=== PATIENT | female | born 1950 | race Caucasian/White ===

== ENCOUNTER 2022-05-31 14:09 | Emergency (ER) | payer OTHER, SELFPAY ==
[2022-05-31 14:26] VITALS: BP 158/69; BP 166/70; PULSE 100; PULSE 107; RESP 18; TEMP 35.8; O2SAT 96; BMI 29.2
--- NOTE | 2022-05-31 15:08 | ED_ITS ---
HPI - Abdominal Pain General Chief Complaint: Abdominal Pain Stated Complaint: abdominal pain Time Seen by Provider: 05/31/22 14:34 Source: patient and EMS Limitations: no limitations History of Present Illness HPI narrative: 72-year-old female with no significant past medical history presenting to the ED complaining of abdominal cramping, nausea, and nonbloody diarrhea s/p eating piece of sausage around 10:00. Reports symptoms started about 30 minutes after eating sausage. Denies fever, chills, vomiting, sick contacts, recent travel, dysuria/hematuria, CP/SOB MD elicited complaint: abdominal pain Related Data Allergies Allergy/AdvReac Type Severity Reaction Status Date / Time No Known Allergies Allergy Verified 05/31/22 14:44 Review of Systems Review of Systems Constitutional: No Fever, No Chills, No Fatigue, No Malaise ENT/Mouth: No Ear Pain, No Nasal Congestion, No sore throat, No Rhinorrhea, No Swallowing Difficulty Eyes: No Eye Pain, No Swelling, No Redness, No Vision Changes Cardiovascular: No Chest Pain, No SOB, No Edema, No Palpitations Respiratory: No Cough, No Sputum, No Dyspnea Gastrointestinal: + Nausea, No Vomiting, + Diarrhea, No Constipation, + Abdominal pain, No Hematochezia, No Melena Genitourinary: No irregular bleeding, No Dysuria, No Urinary Frequency, No Hematuria, No Flank Pain Musculoskeletal: No joint pain, No Myalgias, No Joint Swelling Skin: No Skin Lesions, No rash Neuro: No Weakness, No Numbness, No Dizziness, No Headache Yes all other systems are reviewed and are negative Constitutional: Reports as per [facility] Past Medical History Attestation statement: The following information was validated with the patient. Social History Social History Alcohol intake: never Smoked in Last 30 Days: Yes Use of substances other than those prescribed or required for medical reasons: No Advance Directives: Yes Advance Directives on File: No Physical Exam ED Vital Signs: Vital Signs - 24 hr 05/31/22 14:26 05/31/22 17:46 Temperature 96.5 F L Pulse Rate 107 H 97 Respiratory Rate 18 16 Blood Pressure 166/70 H 127/64 Pulse Oximetry 96 95 Oxygen Delivery Method Room Air Room Air BMI result Body Mass Index 29.2 Const General: cooperative, healthy appearing, comfortable and no acute distress Orientation/consciousness: patient oriented x3 Limitations: no limitations HENMT Head: Yes normal to inspection and Yes atraumatic Ears: hearing grossly normal bilaterally General nose exam: Normal external nose present Face and sinus: Yes normal facial exam Eyes General: appearance normal, both eyes and all related structures EOM: EOMs intact bilaterally Neck Neck: Yes normal visual inspection and Yes no meningeal signs Resp Effort & Inspection: normal respiratory effort and no respiratory distress Auscultation: clear to auscultation bilaterally Cardio Rate: regular rate Heart sounds: S1 normal heart sound present and S2 normal heart sound present GI Inspection: Yes normal to inspection Palpation (GI): Soft to palpation, nontender, no guarding and not rigid Skin Rashes: no rashes Wounds: no wounds Neuro General: patient oriented x3, tone normal and no meningeal signs Gait exam (Neuro): Normal gait present Extrem General: Yes normal to inspection Course Course Course Narrative: -1700--leukocytosis of 17.2. Likely reactive from dry heaving. Still low suspicion for severe sepsis. > will obtain lactic and blood cultures -labs otherwise reassuring. > patient reports symptomatic improvement, requesting to be discharged. Will p.o. challenge. >> patient tolerating p.o. without nausea, vomiting, or abdominal pain -1752--lactic acid 1.6. Patient is safe for discharge home at this time Results discussed with patient including worrisome signs and symptoms and strict return precautions, and when to return to the emergency department. They verbalized understanding and feel safe for discharge at this time. Medical Decision Making Medical Decision Making [facility] Narrative: 72-year-old female with no significant past medical history presenting to the ED complaining of abdominal cramping, nausea, and nonbloody diarrhea s/p eating piece of sausage around 10:00AM. On exam mildly tachycardic, NAD, nontoxic appearing, comfortable, reports symptomatic improvement, abdomen soft/nontender. Concern for food poisoning vs gastroenteritis. Symptoms atypical for ACS. Rule out infectious/metabolic etiologies. Plan: EKG, labs, UA, IVF, sx tx, PO challenge, reasses Low suspicion for severe sepsis Please refer to course for remaining clinical decision making, interpretation of labs/imaging results, and discussions with consultants and/or family members. Differential Diagnosis Differential Diagnoses: The differential diagnosis associated with the presentation includes as above Lab Data MDM Lab Attestation statement: I reviewed the patient's lab results. 05/31/22 15:23 05/31/22 15:23 Labs: Lab Results 05/31/22 05/31/22 05/31/22 Range/Units 15:23 15:23 15:23 WBC 17.2 H (4.8-10.8) X10*3/uL RBC 5.27 (4.20-5.50) X10*6/uL Hgb 15.2 (12.0-16.0) g/dl Hct 45.4 (37.0-47.0) % MCV 86.1 (80.0-98.0) fL MCH 28.8 (27.0-33.0) pg MCHC 33.5 (31.0-35.0) g/dl RDW 13.6 (11.0-16.0) % Plt Count 177 (160-400) X10*3/uL MPV 10.7 (9.4-12.3) fL Immature Gran % (Auto) 0.5 H (0.0-0.4) % Neut % (Auto) 86.2 H (45-73) % Lymph % (Auto) 8.0 L (20-40) % [place] % (Auto) 4.7 (2-11) % Eos % (Auto) 0.3 (0-4) % Baso % (Auto) 0.3 (0-2) % Lymph # (Auto) 1.4 (1.2-4.9) X10*3/uL [place] # (Auto) 0.8 (0.1-1.2) X10*3/uL Eos # (Auto) 0.1 (0.0-0.4) X10*3/uL Baso # (Auto) 0.1 (0.0-0.2) X10*3/uL Abs Immat Gran (auto) 0.08 H (0.00-0.03) X10*3/uL Absolute Neuts (auto) 14.8 H (2.0-8.3) x10*3/uL Absolute Nucleated RBC 0.000 (0.0-0.012) X10*3/uL Nucleated RBC % (auto) 0.0 (0.0-0.2) /100WBC Sodium 138 (135-145) mmol/L Potassium 4.7 (3.3-5.1) mmol/L Chloride 104 (96-108) mmol/L Carbon Dioxide 29 (22-29) mmol/L Anion Gap 10 L (12-20) BUN 12 (9-16) mg/dL Creatinine 0.80 (0.5-1.4) mg/dL Estim Creat Clear Calc 62.9 Estimated GFR > 60 Random Glucose 168 H (60-115) mg/dL Lactic Acid (0.5-2.0) mmol/L Calcium 9.2 (8.4-10.2) mg/dL Magnesium 1.7 (1.6-2.6) mg/dL Total Bilirubin 0.4 (0.0-1.0) mg/dL Direct Bilirubin < 0.2 (0.0-0.5) mg/dL AST 17 (5-31) U/L ALT 17 (0-31) U/L Alkaline Phosphatase 63 (39-117) U/L Troponin I High Sens < 3.5 (<3.5-17.0) ng/L Total Protein 6.7 (6.5-8.0) g/dL Albumin 4.1 (3.5-5.0) g/dL Lipase 19 (8-78) U/L 05/31/22 Range/Units 17:34 WBC (4.8-10.8) X10*3/uL RBC (4.20-5.50) X10*6/uL Hgb (12.0-16.0) g/dl Hct (37.0-47.0) % MCV (80.0-98.0) fL MCH (27.0-33.0) pg MCHC (31.0-35.0) g/dl RDW (11.0-16.0) % Plt Count (160-400) X10*3/uL MPV (9.4-12.3) fL Immature Gran % (Auto) (0.0-0.4) % Neut % (Auto) (45-73) % Lymph % (Auto) (20-40) % [place] % (Auto) (2-11) % Eos % (Auto) (0-4) % Baso % (Auto) (0-2) % Lymph # (Auto) (1.2-4.9) X10*3/uL [place] # (Auto) (0.1-1.2) X10*3/uL Eos # (Auto) (0.0-0.4) X10*3/uL Baso # (Auto) (0.0-0.2) X10*3/uL Abs Immat Gran (auto) (0.00-0.03) X10*3/uL Absolute Neuts (auto) (2.0-8.3) x10*3/uL Absolute Nucleated RBC (0.0-0.012) X10*3/uL Nucleated RBC % (auto) (0.0-0.2) /100WBC Sodium (135-145) mmol/L Potassium (3.3-5.1) mmol/L Chloride (96-108) mmol/L Carbon Dioxide (22-29) mmol/L Anion Gap (12-20) BUN (9-16) mg/dL Creatinine (0.5-1.4) mg/dL Estim Creat Clear Calc Estimated GFR Random Glucose (60-115) mg/dL Lactic Acid 1.6 (0.5-2.0) mmol/L Calcium (8.4-10.2) mg/dL Magnesium (1.6-2.6) mg/dL Total Bilirubin (0.0-1.0) mg/dL Direct Bilirubin (0.0-0.5) mg/dL AST (5-31) U/L ALT (0-31) U/L Alkaline Phosphatase (39-117) U/L Troponin I High Sens (<3.5-17.0) ng/L Total Protein (6.5-8.0) g/dL Albumin (3.5-5.0) g/dL Lipase (8-78) U/L Radiology Impression Discussion of test interpretation with radiology: I have reviewed the radiologist's reading. Prescription Management I considered prescription management with: Pain Medication Medications Administered Discontinued Medications Generic Name Dose Route Start Last Admin Trade Name Freq PRN Reason Stop Dose Admin Al Hydroxide/Mg Hydroxide 30 ml 05/31/22 14:44 05/31/22 15:24 Magnesium Hydrox/Alum Hydrox 30 Ml Oral.Susp PO 05/31/22 14:45 30 ml ONCE ONE Administration Famotidine 20 mg 05/31/22 14:44 05/31/22 15:24 Famotidine 20 Mg Tablet PO 05/31/22 14:45 20 mg ONCE ONE Administration Sodium Chloride 1,000 mls @ 999 mls/hr 05/31/22 15:15 05/31/22 16:51 Ns IV 05/31/22 16:15 Infused .Q1H1M LUIS DANIEL Infusion Lidocaine HCl 15 ml 05/31/22 14:44 05/31/22 15:24 Lidocaine Hcl Viscous 2 % 15 Ml Solution MUCOUS MEM 05/31/22 14:45 15 ml ONCE ONE Administration Ondansetron HCl 4 mg 05/31/22 14:44 05/31/22 15:24 Ondansetron Odt 4 Mg Tab.Rapdis TRANSLINGU 05/31/22 14:45 4 mg ONCE ONE Administration Discharge Plan Discharge Clinical Impression: Food poisoning Patient Disposition: Home, Self-Care Instructions: Acute Diarrhea (ED) Additional Instructions: Your blood work showed a elevated white blood cell count, this could be reactive from your dry heaving. you likely got food poisoning/viral gastroenteritis The stay hydrated at home. Practice a bland diet for the next few days Follow-up with her doctor If symptoms persist or worsen you have fever, persistent abdominal pain/naus ea/vomiting or diarrhea return to the emergency department Referrals: Physician,Jessika J [Primary Care Provider] -
--- NOTE | 2022-05-31 15:18 | ECG_ITS ---
Test Reason : ABDOMINAL PAIN Blood Pressure : / mmHG Vent. Rate : 099 BPM Atrial Rate : 099 BPM P-R Int : 198 ms QRS Dur : 068 ms QT Int : 324 ms P-R-T Axes : 056 042 066 degrees QTc Int : 415 ms Poor data quality Normal sinus rhythm Nonspecific T wave abnormality Abnormal ECG No previous ECGs available Please repeat EKG with better baseline Referred By: Melody Aparicio Electronically Signed By:DENZEL SHEPHERD MD
[2022-05-31] MEDS: Magnesium Hydrox/Alum Hydrox 30 ML ORAL.SUSP PO (15:24)
[2022-05-31] MEDS: Famotidine 20 MG TABLET PO (15:24)
[2022-05-31] MEDS: 0.9 % Sodium Chloride 1,000 ML 999 ML IV (15:24)
[2022-05-31] MEDS: Lidocaine HCl Viscous 2 % 15 ML SOLUTION MUCOUS MEM (15:24)
[2022-05-31] MEDS: Ondansetron ODT 4 MG TAB.RAPDIS TRANSLINGU (15:24)
[2022-05-31 15:28] LABS: MANUAL DIFF FLAG NO
[2022-05-31 15:31] LABS: Basophils Absolute Auto 0.1 X10*3/uL (0.0-0.2); Basophils Percent Auto 0.3 % (0-2); Eosinophils Absolute Auto 0.1 X10*3/uL (0.0-0.4); Eosinophils Percent Auto 0.3 % (0-4); Hematocrit 45.4 % (37.0-47.0); Hemoglobin 15.2 g/dl (12.0-16.0); Imm Gran Abs Auto 0.08 X10*3/uL (0.00-0.03); Imm Gran Pct Auto 0.5 % (0.0-0.4); Lymphocytes Absolute Auto 1.4 X10*3/uL (1.2-4.9); Mean Corpuscular HGB Conc 33.5 g/dl (31.0-35.0); Mean Corpuscular Hemoglobin 28.8 pg (27.0-33.0); Mean Corpuscular Volume 86.1 fL (80.0-98.0); Mean Platelet Volume 10.7 fL (9.4-12.3); Monocytes Absolute Auto 0.8 X10*3/uL (0.1-1.2); Monocytes Percent Auto 4.7 % (2-11); Neutrophils Absolute Auto 14.8 x10*3/uL (2.0-8.3); Neutrophils Percent Auto 86.2 % (45-73); Platelet Count 177 X10*3/uL (160-400); Red Blood Count 5.27 X10*6/uL (4.20-5.50); Red Cell Distribution Width 13.6 % (11.0-16.0); White Blood Count 17.2 X10*3/uL (4.8-10.8)
[2022-05-31 15:54] LABS: Alanine Aminotransferase 17 U/L (0-31); Albumin Level 4.1 g/dL (3.5-5.0); Alkaline Phosphatase 63 U/L (39-117); Anion Gap 10 (12-20); Aspartate Amino Transferase 17 U/L (5-31); Bilirubin Direct < 0.2 mg/dL (0.0-0.5); Bilirubin Total 0.4 mg/dL (0.0-1.0); Blood Urea Nitrogen 12 mg/dL (9-16); Calcium 9.2 mg/dL (8.4-10.2); Carbon Dioxide 29 mmol/L (22-29); Chloride 104 mmol/L (96-108); Creatinine Clr Calc Pharmacy 62.9; Estimated Glomerular Filt Rate > 60; Glucose Random 168 mg/dL (60-115); Lipase 19 U/L (8-78); Magnesium 1.7 mg/dL (1.6-2.6); Potassium 4.7 mmol/L (3.3-5.1); Sodium 138 mmol/L (135-145); Total Protein 6.7 g/dL (6.5-8.0)
[2022-05-31 16:03] LABS: Troponin-I High Sensitivity < 3.5 ng/L (<3.5-17.0)
[2022-05-31 17:46] VITALS: BP 127/64; PULSE 97; RESP 16; O2SAT 95
[2022-05-31 17:51] LABS: Lactic Acid 1.6 mmol/L (0.5-2.0)
== END 2022-05-31 18:09 | disposition home or self-care (01) ==
PROVIDERS: Physician Assistant; Emergency Provider Emergency Medicine
DX: A05.9 Bacterial foodborne intoxication, unspecified (principal); R00.0 Tachycardia, unspecified
CPT/HCPCS: 36415; 80048; 80076; 83605; 83690; 83735; 84484; 85025; 87040; 93005; 96360; 99284; 99285

== ENCOUNTER 2022-11-20 22:34 | Emergency (ER) | payer OTHER, SELFPAY ==
--- NOTE | ~2022-11-20 | CT_ITS ---
EXAMINATION: CT ABDOMEN AND PELVIS WITHOUT CONTRAST CLINICAL INFORMATION: Left flank pain COMPARISON: None available. TECHNIQUE: Multidetector volumetric imaging was performed from the superior aspect of the liver through the pubic symphysis. Sagittal and coronal reformatted images were obtained on the technologist's workstation. This CT examination was performed using dose optimization techniques as appropriate, variously including the following: *Automated exposure control *Adjustment of mA and/or kV according to patient size (this includes techniques or standardized protocols for targeted exams where dose is matched to indication/reason for exam; i.e. extremities or head) *Use of iterative reconstruction technique DLP: 582 mGy-cm FINDINGS: LUNG BASES: The visualized lung bases are clear. Coronary artery calcifications. LIVER, GALLBLADDER, AND BILIARY TREE: The liver is normal in size, shape, and attenuation. No focal hepatic lesion or biliary ductal dilatation is present. Cholecystectomy. PANCREAS: Unremarkable. SPLEEN: Unremarkable. ADRENAL GLANDS: Unremarkable. KIDNEYS AND URETERS: The kidneys are normal in size, shape, and attenuation. The cortical thinning at the upper pole of the left kidney. No hydronephrosis, hydroureter, or calculi seen. No perinephric stranding. BLADDER: Unremarkable. GASTROINTESTINAL TRACT: The stomach is unremarkable. Normal caliber small bowel. No obstruction. No colonic wall thickening or inflammation. No free air or free fluid. ABDOMINAL WALL: Fat-containing umbilical hernia. LYMPH NODES: Normal. VASCULAR: Normal caliber aorta with moderate atherosclerotic calcification. PELVIC VISCERA: No pelvic mass. OSSEOUS STRUCTURES: No acute or suspicious osseous abnormality. Degenerative change throughout the spine. Vacuum disc phenomenon at L3-L4, L4-L5, and L5-S1. CT/CT abdomen pelvis wo IV con IMPRESSION: No acute findings in the abdomen or pelvis. No hydronephrosis or nephrolithiasis. Fleischner guidelines were followed.
[2022-11-20 22:41] VITALS: BP 154/60; BP 170/77; PULSE 76; PULSE 80; RESP 16; TEMP 36.6; O2SAT 94; O2SAT 97; BMI 31.4
[2022-11-20 23:07] VITALS: BP 136/49; PULSE 78; RESP 16; TEMP 36.8; O2SAT 98
--- NOTE | 2022-11-20 23:09 | MHC.EDTECH ---
PATIENT BLOOD DRAWN AND URINE SAMPLE COLLECTED AND SENT TO LAB ,VITALS SIGN TAKEN .
[2022-11-20 23:11] LABS: Basophils Percent Auto 0.5 % (0-2); Eosinophils Absolute Auto 0.1 X10*3/uL (0.0-0.4); Eosinophils Percent Auto 1.5 % (0-4); Hematocrit 42.7 % (37.0-47.0); Hemoglobin 14.2 g/dl (12.0-16.0); Imm Gran Abs Auto 0.03 X10*3/uL (0.00-0.03); Imm Gran Pct Auto 0.4 % (0.0-0.4); Lymphocytes Absolute Auto 2.2 X10*3/uL (1.2-4.9); Lymphocytes Percent Auto 28.7 % (20-40); MANUAL DIFF FLAG NO; Mean Corpuscular HGB Conc 33.3 g/dl (31.0-35.0); Mean Corpuscular Hemoglobin 28.4 pg (27.0-33.0); Mean Corpuscular Volume 85.4 fL (80.0-98.0); Mean Platelet Volume 10.4 fL (9.4-12.3); Monocytes Absolute Auto 0.7 X10*3/uL (0.1-1.2); Monocytes Percent Auto 8.8 % (2-11); Neutrophils Absolute Auto 4.5 x10*3/uL (2.0-8.3); Neutrophils Percent Auto 60.1 % (45-73); Platelet Count 166 X10*3/uL (160-400); Red Cell Distribution Width 13.3 % (11.0-16.0); White Blood Count 7.5 X10*3/uL (4.8-10.8)
[2022-11-20 23:12] LABS: Appearance Urine Clear; Color Urine Yellow; Glucose Urine UA Negative (Negative); Leukocyte Esterase Urine Small (1+) (Negative); Nitrite Urine Positive (Negative); PH 6.5 (5.0-9.0); Specific Gravity - Urine 1.025 (1.005-1.025); UMIC TRIGGER UACC YES; Urine Blood Negative (Negative); Urine Ketones Negative (Negative); Urine Protein Negative (Neg-Trace)
[2022-11-20 23:17] LABS: Bacteria Urine 2+ (None Seen); Hyaline Casts Urine 0-2 /LPF (0-2); UACC Culture Trigger YES; WBC Urine 21-50 /HPF (0-5)
--- NOTE | 2022-11-20 23:23 | ED.ABDPAIN ---
HPI - Abdominal Pain General Chief Complaint: Abdominal Pain Stated Complaint: L lower back pain x3days. radiates to abd Time Seen by Provider: 11/20/22 23:16 Source: patient Mode of arrival: ambulatory Limitations: no limitations History of Present Illness HPI narrative: Patient with history of chronic back pain recurrent UTI comes here for urinary frequency foul odor for last 3 days no fever no chills no hematuria no vomiting no fever no abdominal pain no recent fall Related Data Previous Rx's Medication Instructions Recorded cefuroxime axetil 250 mg tablet 250 mg PO BID 7 days #14 tabs 11/21/22 tramadol 50 mg tablet 50 mg PO Q6H PRN pain #20 tabs 11/21/22 Allergies Allergy/AdvReac Type Severity Reaction Status Date / Time Sulfa (Sulfonamide AdvReac Unknown Verified 11/20/22 22:44 Antibiotics) Review of Systems Review of Systems Yes all other systems are reviewed and are negative [facility] Social History Social History Alcohol intake: never Smoked in Last 30 Days: Yes Use of substances other than those prescribed or required for medical reasons: No Advance Directives: No Advance Directives Information Provided: Yes Physical Exam ED Vital Signs: Vital Signs - 24 hr 11/20/22 22:41 11/20/22 23:07 11/21/22 01:30 Temperature 97.9 F 98.3 F 98.7 F Pulse Rate 76 78 79 Respiratory Rate 16 16 16 Blood Pressure 154/60 H 136/49 L 148/60 H Pulse Oximetry 94 98 98 Oxygen Delivery Method Room Air Room Air Room Air BMI result Body Mass Index 31.4 Appearance: Alert. Oriented X3. No acute distress. Eyes: PERRLA, No Nystagmus ENT: Pharynx normal. Oral Mucosa moist Neck: Normal inspection. Neck supple. CVS: Normal heart rate and rhythm. Pulses normal. Respiratory: No respiratory distress. Equal air entry bilateral, no wheezing/rales/rhonchi Abdomen: Soft and nontender. Bowel sounds are present, no mass palpable, no CVA tenderness Skin: Skin warm and dry. Normal skin color. Normal skin turgor. Extremities: No lower extremity edema. No calf tenderness back: Diffuse lower lumbar tenderness no focal midline tenderness Neuro: Oriented X 3. No motor deficit. No sensory deficit.No cerebellar signs , cranial nerves II-XII intact Medical Decision Making Medical Decision Making [facility] Narrative: Patient with uncomplicated UTI CT scan is negative for acute no lumbar compression fracture no kidney stone patient received Rocephin IV discharge patient home on tramadol and cefuroxime Differential Diagnosis Differential Diagnoses: The differential diagnosis associated with the presentation includes UTI/kidney stone/lumbar compression fracture/diverticulitis Lab Data [facility] Lab Attestation statement: I reviewed the patient's lab results. 11/20/22 23:04 11/20/22 23:04 Labs: Lab Results 11/20/22 11/20/22 11/20/22 Range/Units 23:04 23:04 23:04 WBC 7.5 (4.8-10.8) X10*3/uL RBC 5.00 (4.20-5.50) X10*6/uL Hgb 14.2 (12.0-16.0) g/dl Hct 42.7 (37.0-47.0) % MCV 85.4 (80.0-98.0) fL MCH 28.4 (27.0-33.0) pg MCHC 33.3 (31.0-35.0) g/dl RDW 13.3 (11.0-16.0) % Plt Count 166 (160-400) X10*3/uL MPV 10.4 (9.4-12.3) fL Immature Gran % (Auto) 0.4 (0.0-0.4) % Neut % (Auto) 60.1 (45-73) % Lymph % (Auto) 28.7 (20-40) % [place] % (Auto) 8.8 (2-11) % Eos % (Auto) 1.5 (0-4) % Baso % (Auto) 0.5 (0-2) % Lymph # (Auto) 2.2 (1.2-4.9) X10*3/uL [place] # (Auto) 0.7 (0.1-1.2) X10*3/uL Eos # (Auto) 0.1 (0.0-0.4) X10*3/uL Baso # (Auto) 0.0 (0.0-0.2) X10*3/uL Abs Immat Gran (auto) 0.03 (0.00-0.03) X10*3/uL Absolute Neuts (auto) 4.5 (2.0-8.3) x10*3/uL Absolute Nucleated RBC 0.000 (0.0-0.012) X10*3/uL Nucleated RBC % (auto) 0.0 (0.0-0.2) /100WBC Sodium 138 (135-145) mmol/L Potassium 4.0 (3.3-5.1) mmol/L Chloride 107 (96-108) mmol/L Carbon Dioxide 24 (22-29) mmol/L Anion Gap 11 L (12-20) BUN 18 H (9-16) mg/dL Creatinine 0.82 (0.5-1.4) mg/dL Estim Creat Clear Calc 63.7 Estimated GFR > 60 Random Glucose 191 H (60-115) mg/dL Calcium 9.0 (8.4-10.2) mg/dL Total Bilirubin 0.3 (0.0-1.0) mg/dL AST 18 (5-31) U/L ALT 21 (0-31) U/L Alkaline Phosphatase 51 (39-117) U/L Total Protein 6.7 (6.5-8.0) g/dL Albumin 4.0 (3.5-5.0) g/dL Urine Color Yellow Urine Appearance Clear Urine pH 6.5 (5.0-9.0) Ur Specific [place] 1.025 (1.005-1.025) Urine Protein Negative (Neg-Trace) mg/dL Urine Glucose (UA) Negative (Negative) mg/dL Urine Ketones Negative (Negative) mg/dL Urine Blood Negative (Negative) Urine Nitrite Positive H (Negative) Ur Leukocyte Esterase Small (1+) H (Negative) Urine RBC 3-5 H (0-2) /HPF Urine WBC 21-50 H (0-5) /HPF Ur Squamous Epith Cells 3-5 (0-2) /HPF Urine Bacteria 2+ (None Seen) Hyaline Casts 0-2 (0-2) /LPF Medications Administered Discontinued Medications Generic Name Dose Route Start Last Admin Trade Name Freq PRN Reason Stop Dose Admin Ceftriaxone Sodium 1 gm/ 50 mls @ 100 mls/hr 11/20/22 23:27 11/21/22 01:15 Sodium Chloride IV 11/20/22 23:56 Infused ONCE ONE Infusion Sodium Chloride 1,000 mls @ 999 mls/hr 11/20/22 23:28 11/21/22 01:15 Ns IV 11/21/22 00:28 Infused .Q1H1M ONE Infusion Ketorolac Tromethamine 30 mg 11/20/22 23:28 11/20/22 23:42 Ketorolac Tromethamine 30 Mg/Ml Vial IVPUSH 11/20/22 23:29 30 mg ONCE ONE Administration Oxycodone HCl 5 mg 11/21/22 00:43 11/21/22 01:40 Oxycodone Hcl Immed Release 5 Mg Tablet PO 11/21/22 00:44 5 mg ONCE ONE Administration Discharge Plan Discharge Clinical Impression: Acute UTI (urinary tract infection), Chronic back pain Patient Disposition: Home, Self-Care Instructions: Chronic Back Pain (DC), Urinary Tract Infection in Older Adults (ED) Additional Instructions: Drink plenty of fluids Take antibiotics as prescribed Pain medication as prescribed Follow with PCP Report to the ER if vomiting/high-grade fever/abdominal pain Prescriptions: New cefuroxime axetil 250 mg tablet 250 mg PO BID 7 Days Qty: 14 0RF tramadol 50 mg tablet 50 mg PO Q6H PRN (Reason: pain) Qty: 20 0RF
[2022-11-20 23:24] LABS: Alanine Aminotransferase 21 U/L (0-31); Alkaline Phosphatase 51 U/L (39-117); Anion Gap 11 (12-20); Aspartate Amino Transferase 18 U/L (5-31); Bilirubin Total 0.3 mg/dL (0.0-1.0); Blood Urea Nitrogen 18 mg/dL (9-16); Carbon Dioxide 24 mmol/L (22-29); Chloride 107 mmol/L (96-108); Creatinine Clr Calc Pharmacy 63.7; Estimated Glomerular Filt Rate > 60; Glucose Random 191 mg/dL (60-115); Sodium 138 mmol/L (135-145); Total Protein 6.7 g/dL (6.5-8.0)
[2022-11-20] MEDS: 0.9 % Sodium Chloride 1,000 ML 999 ML IV (23:41)
[2022-11-20] MEDS: Ketorolac Tromethamine 30 MG/ML VIAL IVPUSH (23:42)
[2022-11-20] MEDS: cefTRIAXone sodium 1 GM in 0.9 % Sodium Chloride 50 ML IV (23:43)
--- NOTE | 2022-11-21 00:16 | PC.NURSE ---
notified of severe pain.
--- NOTE | 2022-11-21 00:35 | MHC.EDTECH ---
PATIENT WAS ASSISTED TO WALK TO BATHROOM AND BACH TO BED ,PATIENT VOID LG AMOUNT OF URINE .
[2022-11-21 01:30] VITALS: BP 148/60; PULSE 79; RESP 16; TEMP 37.1; O2SAT 98
[2022-11-21] MEDS: oxyCODONE HCl Immed Release 5 MG TABLET PO (01:40)
== END 2022-11-21 04:04 | disposition home or self-care (01) ==
PROVIDERS: Emergency Provider Internal Medicine
DX: N39.0 Urinary tract infection, site not specified (principal); B96.20 Unspecified Escherichia coli [E. coli] as the cause of diseases classified elsewhere; G89.29 Other chronic pain; M54.50 Low back pain, unspecified
CPT/HCPCS: 36415; 74176; 80053; 81001; 85025; 87086; 87088; 87186; 96365; 96375; 99284; J0696; J1885